=== PATIENT | male | born 1985 | race Caucasian/White ===

== ENCOUNTER 2017-05-19 15:41 | Emergency (ER) | payer MEDICAID ==
[~2017-05-19] VITALS: Ht 182.9 cm; Wt 75.0 kg
[~2017-05-19 15:41] MED LIST: METH750T2 PO; MOBI15TA PO
[2017-05-19 15:43] VITALS: BP 130/70; PULSE 67; RESP 14; TEMP 98.2; O2SAT 100
--- NOTE | 2017-05-19 17:21 | PD ---
HPI Chief Complaint: Pain: Acute or Chronic Time Seen by Provider: 17:15 Travel History International Travel<30 days: No Contact w/Intl Traveler<30days: No Traveled to known affect area: No History of Present Illness HPI Patient comes emergency department complaining of left index finger pain ongoing for a week. Patient's pain began after using zero turn lawnmower for approximately 8 hours mowing grass. Patient has a burning sensation over the proximal phalanx that radiates distally. Pains worse with trying to flex his finger. Patient reports history of previous tendon repair surgery 5 years ago to the same finger reports having full range of motion prior to a week ago. Patient states he is unable to fully flex the finger secondary to the pain. Patient tried wearing a finger splint with no improvement of symptoms. Denies any fevers or IV drug use. Reports he continues to mow. Denies anything making his symptoms better. Patient is left-hand dominant. PFSH Past Medical History Herniated Disk: Yes (x2 NECK) Tetanus Vaccination: < 5 Years Past Surgical History Surgical History: No Previous Surgery Social History Alcohol Use: No Tobacco Use: No Substance Use: Yes (pot) Allergies-Medications (Allergen,Severity, Reaction): Coded Allergies: No Known Allergies (Unverified Adverse Reaction, Unknown, 05/19/17) Reported Meds & Prescriptions Reported Meds & Active Scripts Active Prednisone (21) 10 mg tab Dose Pack (Prednisone) 10 Mg Pack 10 Mg PO DIRECTED Review of Systems Except as stated in HPI: all other systems reviewed are Neg Physical Exam Narrative GENERAL: Well-developed, well nourished, in no acute distress, and non-ill appearing. SKIN: Focused skin assessment warm and dry. HEAD: Atraumatic. Normocephalic. EYES: Pupils equal and round. EOMI. No scleral icterus. No injection or drainage. ENT: No nasal bleeding or discharge. Mucous membranes pink and moist. NECK: Trachea midline. Supple. No nuclear rigidity. CARDIOVASCULAR: Capillary refill less than 2 seconds. RESPIRATORY: No accessory muscle use. No respiratory distress. MUSCULOSKELETAL: No obvious deformities. No clubbing. No cyanosis. No edema. Decreased range of motion with flexion of left index finger secondary to pain. Patient reports tenderness to palpation over proximal phalanx of left index finger. There is no crepitus, erythematous, fluctuation, induration, or open wound noted. It is afebrile. NEUROLOGICAL: Awake and alert. No obvious cranial nerve deficits. Motor grossly within normal limits. Normal speech. PSYCHIATRIC: Appropriate mood and affect; insight and judgment normal. Data Data Last Documented VS Vital Signs Date Time Temp Pulse Resp B/P (MAP) Pulse Ox O2 Delivery O2 Flow Rate FiO2 05/19/17 18:51 05/19/17 15:43 98.2 67 14 100 Room Air Orders Orders Dexamethasone Inj (Decadron Inj) (05/19/17 17:30) Finger ([id number]) (05/19/17 ) Ed Discharge Order (05/19/17 18:45) MDM Medical Decision Making Medical Screen Exam Complete: Yes Emergency Medical Condition: Yes Interpretation(s) Last Impressions Finger X-Ray 05/19/17 0000 Signed Impressions: Service Date/Time: Friday, May 19, 2017 17:51 - CONCLUSION: There is soft tissue swelling of the fourth finger. No acute bony abnormality. Ronald Croft MD Differential Diagnosis Fracture, sprain, dislocation, contusion Narrative Course There is no clinical evidence for fracture. There is no clinical evidence to suspect bony injury or infection by exam. Radiographic examination revealed no fracture seen at this time. No obvious ligamental injury or internal derangement is noted at this time. The distal extremity appears neurovascularly intact, without evidence of neurovascular injury nor compartment syndrome. Tendon exam also was intact. The effected limb was splinted. The patient was discharged and given warnings for vascular compromise. The patient is to follow up with hand surgeon. The patient agrees with plan. Patient in no obvious distress upon re-evaluation. All pertinent Radiology result(s) discussed with patient. Patient was asked if they wanted to speak to my attending, which the patient did not wish to do at this time. Any questions/ concerns in reference to patient diagnosis/condition discussed and clarified prior to patient's discharge. Reinforced sheer importance of close follow up with patient's primary physician or primary care clinic and hand surgeon. Instructed patient to return to ED immediately, if symptoms return/worsen. Patient showed understanding of above instructions. Further instructions and recommendations were detailed in discharge paperwork. Patient ambulated without difficulty out of ED at discharge. Diagnosis Primary Impression: Finger pain, left Referrals: Katie Sampson MD [facility] Patient Instructions: General Instructions Additional Instructions: Follow-up with your primary care physician and/or hand surgeon this week for reevaluation. Take all medication as prescribed. Apply ice to affected area 20 minutes per hour as needed for pain. Ethan tape fingers. Return to the emergency department if symptoms get worse. Med/Other Pt SpecificInfo: Prescription(s) given Scripts Prednisone (21) 10 mg tab Dose Pack (Prednisone (21) 10 mg tab Dose Pack) 10 Mg Pack 10 MG PO DIRECTED for Inflammation, #1 DSPK 0 Refills Prov: Zeus Thacker MD 05/19/17 Disposition: 01 DISCHARGE HOME Condition: Stable Alex Barros May 19, 2017 17:21
[2017-05-19] MEDS ORDERED: DEXAMETHASONE SOD PHOS 20 MG/5 ML VIAL IM ONE (17:30)
--- NOTE | 2017-05-19 18:20 | RADRPT ---
EXAM DATE/TIME: 05/19/2017 17:51 [facility] COMPARISON: No previous studies available for comparison. INDICATIONS : Pain in 4th digit. Swelling in 4th digit. MEDICAL HISTORY : None. SURGICAL HISTORY : None. ENCOUNTER: Initial ACUITY: 1 day PAIN SCORE: 8/10 LOCATION: Left 4th digit FINDINGS: Examination of the fourth digit of the left hand demonstrates no evidence of fracture or dislocation. No radiopaque foreign bodies are seen. CONCLUSION: There is soft tissue swelling of the fourth finger. No acute bony abnormality. Ronald Croft MD on May 19, 2017 at 18:16 Board Certified Radiologist. This report was verified electronically.
[2017-05-19] MEDS ORDERED: PRED10PA PO (18:49)
== END 2017-05-19 19:09 | disposition home or self-care (01) ==
LOC: NEPK 15:41
DX: M79.645 Pain in left finger(s) (principal); F12.90 Cannabis use, unspecified, uncomplicated
CPT/HCPCS: 73140; 96372; 99284; J1100